=== PATIENT | female | born 1980 | race American Indian/Alaskan Native ===

== ENCOUNTER 2018-09-22 18:28 | Emergency (ER) | payer OTHER ==
[2018-09-22 18:28] VITALS: BMI 24.6
[2018-09-22 18:39] VITALS: BP 127/81; PULSE 58; TEMP 97.9; O2SAT 100
--- NOTE | 2018-09-22 19:03 | C.PDOC ---
History Of Present Illness 37 year old female presents to the emergency department for medical evaluation of PPD test that was placed on 09-19-18 on her right forearm. Patient denies fever, chills, nausea, vomiting, chest pain, and shortness of breath. Time Seen by Provider: 09/22/18 18:58 Chief Complaint (Nursing): Medical Clearance History Per: Patient History/Exam Limitations: no limitations Onset/Duration Of Symptoms: Days (3) Current Symptoms Are (Timing): Still Present Past Medical History Reviewed: Historical Data, Nursing Documentation, Vital Signs Vital Signs: Last Vital Signs Temp 97.9 F 09/22/18 18:34 Pulse 58 L 09/22/18 18:34 Resp 16 09/22/18 18:34 BP 127/81 09/22/18 18:34 Pulse Ox 100 09/22/18 18:34 - Medical History PMH: No Chronic Diseases Denies: Depression Surgical History: No Surg Hx Family History: States: No Known Family Hx - Social History Hx Tobacco Use: Yes Hx Alcohol Use: Yes Hx Substance Use: No - Immunization History Hx Tetanus Toxoid Vaccination: No Hx Influenza Vaccination: Yes Hx Pneumococcal Vaccination: No Review Of Systems Constitutional: Negative for: Fever, Chills Cardiovascular: Negative for: Chest Pain Respiratory: Negative for: Shortness of Breath Gastrointestinal: Negative for: Nausea, Vomiting Physical Exam - Physical Exam Appears: Non-toxic, No Acute Distress Skin: Normal Color, Warm, Dry, Other (1cm circular, flat area of erythema to the right forearm) Head: Atraumatic, Normacephalic Eye(s): bilateral: Normal Inspection, PERRL, EOMI Nose: Normal Oral Mucosa: Moist Neck: Normal, Supple Chest: Symmetrical, No Tenderness Cardiovascular: Rhythm Regular Respiratory: Normal Breath Sounds, No Accessory Muscle Use Gastrointestinal/Abdominal: Soft, No Tenderness Extremity: Normal ROM Neurological/Psych: Oriented x3, Normal Speech, Normal Cognition ED Course And Treatment O2 Sat by Pulse Oximetry: 100 (RA) Pulse Ox Interpretation: Normal Medical Decision Making Medical Decision Making: Patient is clear for discharge home. Disposition - Disposition Referrals: Juan Marc MD [Staff Provider] - Disposition: HOME/ ROUTINE Disposition Time: 19:03 Condition: IMPROVED Additional Instructions: HEBERT MIRAMONTES, thank you for letting us take care of you today. Your provider was ED Physician and you have negative PPD. The emergency medical care you received today was directed at your acute symptoms. If you were prescribed any medication, please fill it and take as directed. It may take several days for your symptoms to resolve. Return to the Emergency Department if your symptoms worsen, do not improve, or if you have any other problems. Please contact your doctor or call one of the physicians/clinics you have been referred to that are listed on the Patient Visit Information form that is included in your discharge packet. Bring any paperwork you were given at discharge with you along with any medications you are taking to your follow up visit. Our treatment cannot replace ongoing medical care by a primary care provider outside of the emergency department. Thank you for allowing the [facility] team to be part of your care today. Instructions: TB Screening Test Forms: [employer] ([place]) - Clinical Impression Clinical Impression: PPD negative - PA / PROCESSES CHEMICAL DESIGN ENGINEER / Resident Statement MD/DO has reviewed & agrees with the documentation as recorded. - Scribe Statement The provider has reviewed the documentation as recorded by the Scribe (Teodoro Jordan) All medical record entries made by the Scribe were at my direction and per sonally dictated by me. I have reviewed the chart and agree that the record accurately reflects my personal performance of the history, physical exam, medical decision making, and the department course for this patient. I have also personally directed, reviewed, and agree with the discharge instructions and disposition.
[2018-09-22 20:21] VITALS: RESP 18
== END 2018-09-22 19:21 | disposition home or self-care (01) ==
LOC: C.ER 18:28
DX: Z01.89 Encounter for other specified special examinations (principal)